=== PATIENT | male | born 1990 | race Caucasian/White ===

== ENCOUNTER 2022-07-21 17:20 | Inpatient (IN) ==
--- NOTE | 2022-07-21 17:48 | ED Triage Note ---
Date of Service July 21, 2022 History of Present Illness This patient was briefly evaluated while in triage. An abbreviated physical exam was performed. This patient is a 32-year-old Male who presents to the ED for evaluation of right inguinal hernia. Seen by [facility] earlier this morning for right groin pain. Ultrasound was performed and diagnosed with hernia. He states this afternoon he developed fevers/chills, increased pain, and lethargic. Physical Exam Constitutional: alert and oriented x3. ill appearing HEENT: normocephalic, atraumatic. normal conjunctiva.PERRLA. EOM's grossly intact. Respiratory: lungs are clear to auscultation without wheezes, rhonchi, or rales bilaterally. equal chest rise. normal respiratory effort, no accessory muscle use. Cardiovascular: normal heart sounds without murmur. tachycardic GI: abdomen is soft, nondistended. RLQ tenderness to palpation. No rebound tenderness or guarding. MSK: moves all 4 extremities spontaneously Psych:appropriate mood and affect. Initial orders for labs and / or imaging were placed and patient was placed in the waiting area until a bed is available. Please see further documentation for the full ED course.
[2022-07-21] MEDS ORDERED: SODIUM CHLORIDE 0.9% 1000ML 1,000 ML IV ONE ×2 (18:55→21:56)
[2022-07-21 19:04] LABS: Appearance Urine Clear (Clear); Bilirubin Urine Negative (Negative); Blood Urine Negative (Negative); Color Urine Yellow; Glucose Urine UA Negative (Negative); Ketones Urine Negative (Negative); Leukocyte Esterase Urine Negative (Negative); Nitrite Urine Negative (Negative); Protein Urine Negative (Negative); Specific Gravity Urine 1.012 (1.000-1.030); Urobilinogen Urine Negative (Negative); pH Urine 8.5 (4.5-7.5)
[2022-07-21] MEDS ORDERED: PROMETHAZINE HCL 12.5 MG in SODIUM CHLORIDE 0.9% 50 ML IV STA (19:08)
[2022-07-21] MEDS ORDERED: MoRPHine SULFATE 4 MG/ML 1 ML CARP\\VIAL IV STA (19:08)
[2022-07-21] MEDS ORDERED: cefTRIAXone SODIUM 2,000 MG/70 ML BAG IV STA (19:08)
[2022-07-21] MEDS ORDERED: PROMETHAZINE 12.5 MG/50.5 ML NSS IV ONE (19:14)
[2022-07-21 19:30] LABS: Influenza A virus by PCR Negative (Neg); Influenza B virus by PCR Negative (Neg); RSV by PCR Negative (Neg); SARS CoV2 RNA(COVID-19) Ceph NEGATIVE (Negative)
[2022-07-21 19:40] LABS: Hematocrit (blood only) 42.3 % (42.0-52.0); Hemoglobin 14.6 g/dl (14.0-18.0); Mean Corpuscular Hemoglobin 29.3 pg (25.0-34.0); Mean Corpuscular Hgb Conc 34.5 g/dL (32.0-36.0); Mean Corpuscular Volume 84.9 fL (80.0-100.0); Mean Platelet Volume 9.8 fL (9.4-12.4); Platelet Count 208 K/uL (130-400); RDW Coefficient of Variation 12.6 % (11.5-14.5); RDW Standard Deviation 38.3 fL (36.4-46.3); Red Blood Count 4.98 M/uL (4.70-6.10); White Blood Count 14.73 K/ul (4.8-10.8)
--- NOTE | 2022-07-21 19:44 | Emergency Department Note ---
Impression & Plan Febrile illness, acute, Right groin pain, Tachycardia ED Provider Note NAME: VINNY LAURENT AGE: 32 SEX: M : 1990 ARRIVES VIA: Walk-In INFORMANT: Patient, ED PROVIDER(S): Calixto Mendoza DO CHIEF COMPLAINT: Thigh pain HPI: The patient is a 32-year-old male who presented to the emergency department for an evaluation of right thigh pain. The patient been having ongoing right groin pain and thigh pain since earlier today. He was seen at a an urgent care and was diagnosed with a hernia. His significant other brought him to the [facility] because of worsening pain as well as fever. The patient is very uncomfortable. He denies having any trauma. He does spend time in the [place] and has had tick bites but not recently. He denies having any rash. He states his lower extremities both feel cold. He denies having any flank pain dysuria or frequency. He denies having any cough. He does note some shortness of breath. ROS: See above HPI for pertinent positives & negatives. A total of 10 systems reviewed and were otherwise negative. PAST MEDICAL HISTORY: See Below PAST SURGICAL HISTORY: See Below FAMILY HISTORY: See Below SOCIAL HISTORY: See Below HOME MEDICATIONS: See Below ALLERGIES: See Below VITALS: See Below PHYSICAL EXAMINATION: GENERAL: The patient is awake and alert. He is very anxious appearing. EYES: The conjunctivae are clear. The pupils are round and reactive. EARS, NOSE, MOUTH AND THROAT: The nose is without any evidence of any deformity. NECK: The neck is nontender and supple. RESPIRATORY: Normal respiratory effort is noted there is no evidence of wheezing rhonchi or rales CARDIOVASCULAR: Tachycardic and regular heart sounds were noted to auscultation. There is no definite murmur. GASTROINTESTINAL: The abdomen was distended. There is no tenderness guarding rigidity elicited. MUSCULOSKELETAL/EXTREMITIES: There is no evidence of gross deformity full range of motion is noted in the hips and shoulders. SKIN: Pulses were symmetric in both feet. Skin is warm and dry. There is tenderness over the medial aspect of the right thigh. NEUROLOGIC: Patient is awake alert and oriented x3 MEDICAL DECISION MAKING: The patient is a 32-year-old male who presented to the emergency department for an evaluation of generalized pain and fever. The patient has no significant past medical history. He was tachycardic. The patient was treated with IV fluids and IV pain medication in the emergency department. He was also treated with IV antibiotics empirically. The patient was found have an elevation in his white blood cell count. He had very significant pain in his right groin. For this reason further radiographic studies were obtained. CT of the groin and right femur did not appear to show any acute process specifically no joint effusion or signs of cellulitis. The patient was feeling somewhat improved. He has no family doctor. Given his presentation I do not feel the patient would be a good candidate for outpatient management. For this reason I will discuss his case with the on-call unassigned hospitalist. Triage Nursing notes reviewed. Prior medical records reviewed Vital Signs: reviewed and remarkable for fever and tachycardia. Differential diagnosis: Viral syndrome, otitis, pharyngitis, pneumonia, influenza, meningitis, urinary tract infection, sepsis, bacteremia, as well as other pathologies. ER treatment provided: See below Diagnostics interpreted by me: ECG: none Cardiac Monitoring: An order was placed for continuous cardiac monitoring. The monitor shows a rate of 113 bpm with sinus tachycardia. Laboratory studies: As stated above and show below. Imaging studies: See below. Radiographic imaging was reviewed by myself Consultation(s): I discussed this case with Dr. Baires who is on-call for the [facility] hospitalist group Past Med/Surg History Social History Smoking Status: Never smoker Preferred Language: Bolivian Feels Safe at Home: Yes Results & Data (ED) Vital Signs Vital Signs - 24 hr 07/21/22 17:45 07/21/22 20:09 07/21/22 20:10 Temperature 38.4 C H Temperature Source Oral Pulse Rate 124 H 117 H 113 H Pulse Rate from SpO2 Sensor 114 H Respiratory Rate 22 28 H Respiratory Effort / Characteristics Non-Labored Respiratory Depth Normal Blood Pressure 158/99 H 116/64 Blood Pressure Mean 118 81 Pulse Oximetry 98 98 Oxygen Delivery Method Room Air Room Air Sepsis Recent Fever Within 48 Hours Yes Sepsis New/Unexplained Change in Mental Status No Sepsis Action Taken by Nursing No Action Required 07/21/22 21:20 Temperature 38.6 C H Temperature Source Oral Pulse Rate Pulse Rate from SpO2 Sensor Respiratory Rate Respiratory Effort / Characteristics Respiratory Depth Blood Pressure Blood Pressure Mean Pulse Oximetry Oxygen Delivery Method Sepsis Recent Fever Within 48 Hours Sepsis New/Unexplained Change in Mental Status Sepsis Action Taken by Jail Medications Current Medication List: was personally reviewed by me Laboratory Data Attestation: I reviewed the patient's lab results. 07/21/22 19:15 07/21/22 18:40 Lab Results 07/21/22 07/21/22 07/21/22 Range/Units 18:40 18:40 18:40 WBC Cancelled RBC Cancelled Hgb Cancelled Hct Cancelled MCV Cancelled MCH Cancelled MCHC Cancelled RDW Std Deviation Cancelled RDW Coeff of Robert Cancelled Plt Count Cancelled MPV Cancelled Immature Gran % (Auto) Cancelled Neut % (Auto) Cancelled Lymph % (Auto) Cancelled [place] % (Auto) Cancelled Eos % (Auto) Cancelled Baso % (Auto) Cancelled Neut # (Auto) Cancelled Lymph # (Auto) Cancelled [place] # (Auto) Cancelled Eos # (Auto) Cancelled Baso # (Auto) Cancelled Immature Gran # (Auto) Cancelled Absolute Nucleated RBC Cancelled Nucleated RBC % (auto) Cancelled Neutrophils % (Manual) Cancelled Band Neutrophils % Cancelled Lymphocytes % (Manual) Cancelled Prolymphocyte % Cancelled Reactive Lymphs % (Man) Cancelled Monocytes % (Manual) Cancelled Eosinophils % (Manual) Cancelled Basophils % (Manual) Cancelled Metamyelocytes % (Man) Cancelled Myelocytes % (Man) Cancelled Promyelocytes % (Man) Cancelled Blast Cells % (Manual) Cancelled Plasma Cell % (Manual) Cancelled Other Cells % Cancelled Nucleated RBC % Cancelled Neutrophils # (Manual) Cancelled Band Neutrophils # Cancelled Total Absolute Neuts Cancelled Lymphocytes # (Manual) Cancelled Prolymphocyte # Cancelled Reactive Lymphs # Cancelled Total Abs Lymphocytes Cancelled Monocytes # (Manual) Cancelled Eosinophils # (Manual) Cancelled Basophils # (Manual) Cancelled Metamyelocytes # (Man) Cancelled Myelocytes # (Manual) Cancelled Promyelocytes # (Man) Cancelled Blast Cells # (Man) Cancelled Plasma Cell # (Manual) Cancelled Other Cells # Cancelled Nucleated RBCs # (Man) Cancelled Hypersegmented Neuts Cancelled Hyposegmented Neuts Cancelled Hypogranular Neuts Cancelled Large Granular Lymphs Cancelled # Lrg Granular Lymphs Cancelled Hairy Cells Cancelled Smudge Cells Cancelled Toxic Granulation Cancelled Toxic Vacuolation Cancelled Dohle Bodies Cancelled Hans Rods Cancelled Platelet Estimate Cancelled Hypogranular Platelets Cancelled Giant Platelets Cancelled Platelet Satelliting Cancelled RBC Morphology Cancelled Polychromasia Cancelled Hypochromasia Cancelled Poikilocytosis Cancelled Basophilic Stippling Cancelled Anisocytosis Cancelled Microcytosis Cancelled Macrocytosis Cancelled Spherocytes Cancelled Pappenheimer Bodies Cancelled Sickle Cells Cancelled Target Cells Cancelled Tear Drop Cells Cancelled Ovalocytes Cancelled Stomatocytes Cancelled [place] Bodies Cancelled Echinocytes Cancelled Acanthocytes (Spur) Cancelled Rouleaux Cancelled RBC Agglutinates Cancelled Schistocytes Cancelled ESR (0-15) mm/hr Sezary Cell Cancelled Sodium Cancelled Potassium Cancelled Chloride Cancelled Carbon Dioxide Cancelled Anion Gap Cancelled BUN Cancelled Creatinine Cancelled Est Cr Clr Drug Dosing Cancelled Est GFR ( Amer) Cancelled Est GFR (Non-Af Amer) Cancelled BUN/Creatinine Ratio Cancelled Glucose Cancelled Lactate 2.0 (0.4-2.0) mmol/L Calcium Cancelled Total Bilirubin Cancelled AST Cancelled ALT Cancelled Alkaline Phosphatase Cancelled Total Creatine Kinase (30-223) U/L C-Reactive Protein (0-0.5) mg/dl Total Protein Cancelled Albumin Cancelled Globulin Cancelled Albumin/Globulin Ratio Cancelled Lipase Cancelled Procalcitonin (0-0.5) ng/ml Urine Color Urine Appearance (Clear) Urine pH (4.5-7.5) Ur Specific Krypt[place] (1.000-1.030) Urine Protein (Negative) Urine Glucose (UA) (Negative) Urine Ketones (Negative) Urine Blood (Negative) Urine Nitrite (Negative) Urine Bilirubin (Negative) Urine Urobilinogen (Negative) Ur Leukocyte Esterase (Negative) Anaplasma Smear Babesia Smear Lyme Disease IgG Ab (Negative) Lyme Disease IgM Ab (Negative) SARS-CoV-2 (PCR) (Negative) Influenza Type A (PCR) (Neg) Influenza Type B (PCR) (Neg) RSV (RT-PCR) (Neg) Blood Parasites ID Cancelled 07/21/22 07/21/22 07/21/22 Range/Units 18:40 18:40 19:15 WBC RBC Hgb Hct MCV MCH MCHC RDW Std Deviation RDW Coeff of Robert Plt Count MPV Immature Gran % (Auto) Neut % (Auto) Lymph % (Auto) [place] % (Auto) Eos % (Auto) Baso % (Auto) Neut # (Auto) Lymph # (Auto) [place] # (Auto) Eos # (Auto) Baso # (Auto) Immature Gran # (Auto) Absolute Nucleated RBC Nucleated RBC % (auto) Neutrophils % (Manual) Band Neutrophils % Lymphocytes % (Manual) Prolymphocyte % Reactive Lymphs % (Man) Monocytes % (Manual) Eosinophils % (Manual) Basophils % (Manual) Metamyelocytes % (Man) Myelocytes % (Man) Promyelocytes % (Man) Blast Cells % (Manual) Plasma Cell % (Manual) Other Cells % Nucleated RBC % Neutrophils # (Manual) Band Neutrophils # Total Absolute Neuts Lymphocytes # (Manual) Prolymphocyte # Reactive Lymphs # Total Abs Lymphocytes Monocytes # (Manual) Eosinophils # (Manual) Basophils # (Manual) Metamyelocytes # (Man) Myelocytes # (Manual) Promyelocytes # (Man) Blast Cells # (Man) Plasma Cell # (Manual) Other Cells # Nucleated RBCs # (Man) Hypersegmented Neuts Hyposegmented Neuts Hypogranular Neuts Large Granular Lymphs # Lrg Granular Lymphs Hairy Cells Smudge Cells Toxic Granulation Toxic Vacuolation Dohle Bodies Hans Rods Platelet Estimate Hypogranular Platelets Giant Platelets Platelet Satelliting RBC Morphology Polychromasia Hypochromasia Poikilocytosis Basophilic Stippling Anisocytosis Microcytosis Macrocytosis Spherocytes Pappenheimer Bodies Sickle Cells Target Cells Tear Drop Cells Ovalocytes Stomatocytes Gonzalez-[place] Bodies Echinocytes Acanthocytes (Spur) Rouleaux RBC Agglutinates Schistocytes ESR 27 H (0-15) mm/hr Sezary Cell Sodium Potassium Chloride Carbon Dioxide Anion Gap BUN Creatinine Est Cr Clr Drug Dosing Est GFR ( Amer) Est GFR (Non-Af Amer) BUN/Creatinine Ratio Glucose Lactate (0.4-2.0) mmol/L Calcium Total Bilirubin AST ALT Alkaline Phosphatase Total Creatine Kinase (30-223) U/L C-Reactive Protein (0-0.5) mg/dl Total Protein Albumin Globulin Albumin/Globulin Ratio Lipase Procalcitonin (0-0.5) ng/ml Urine Color Yellow Urine Appearance Clear (Clear) Urine pH 8.5 H (4.5-7.5) Ur Specific [place]rypt[place] 1.012 (1.000-1.030) Urine Protein Negative (Negative) Urine Glucose (UA) Negative (Negative) Urine Ketones Negative (Negative) Urine Blood Negative (Negative) Urine Nitrite Negative (Negative) Urine Bilirubin Negative (Negative) Urine Urobilinogen Negative (Negative) Ur Leukocyte Esterase Negative (Negative) Anaplasma Smear Babesia Smear Lyme Disease IgG Ab (Negative) Lyme Disease IgM Ab (Negative) SARS-CoV-2 (PCR) NEGATIVE (Negative) Influenza Type A (PCR) Negative (Neg) Influenza Type B (PCR) Negative (Neg) RSV (RT-PCR) Negative (Neg) Blood Parasites ID 07/21/22 07/21/22 07/21/22 Range/Units 19:15 19:15 19:54 WBC 14.73 H RBC 4.98 Hgb 14.6 Hct 42.3 MCV 84.9 MCH 29.3 MCHC 34.5 RDW Std Deviation 38.3 RDW Coeff of Robert 12.6 Plt Count 208 MPV 9.8 Immature Gran % (Auto) 0.4 Neut % (Auto) 91.1 Lymph % (Auto) 3.5 [place] % (Auto) 4.8 Eos % (Auto) 0.1 Baso % (Auto) 0.1 Neut # (Auto) 13.41 H Lymph # (Auto) 0.51 L [place] # (Auto) 0.71 H Eos # (Auto) 0.02 Baso # (Auto) 0.02 Immature Gran # (Auto) 0.06 Absolute Nucleated RBC Nucleated RBC % (auto) Neutrophils % (Manual) Band Neutrophils % Lymphocytes % (Manual) Prolymphocyte % Reactive Lymphs % (Man) Monocytes % (Manual) Eosinophils % (Manual) Basophils % (Manual) Metamyelocytes % (Man) Myelocytes % (Man) Promyelocytes % (Man) Blast Cells % (Manual) Plasma Cell % (Manual) Other Cells % Nucleated RBC % Neutrophils # (Manual) Band Neutrophils # Total Absolute Neuts Lymphocytes # (Manual) Prolymphocyte # Reactive Lymphs # Total Abs Lymphocytes Monocytes # (Manual) Eosinophils # (Manual) Basophils # (Manual) Metamyelocytes # (Man) Myelocytes # (Manual) Promyelocytes # (Man) Blast Cells # (Man) Plasma Cell # (Manual) Other Cells # Nucleated RBCs # (Man) Hypersegmented Neuts Hyposegmented Neuts Hypogranular Neuts Large Granular Lymphs # Lrg Granular Lymphs Hairy Cells Smudge Cells Toxic Granulation Toxic Vacuolation Dohle Bodies Hans Rods Platelet Estimate Hypogranular Platelets Giant Platelets Platelet Satelliting RBC Morphology Polychromasia Hypochromasia Poikilocytosis Basophilic Stippling Anisocytosis Microcytosis Macrocytosis Spherocytes Pappenheimer Bodies Sickle Cells Target Cells Tear Drop Cells Ovalocytes Stomatocytes Gonzalez-[place] Bodies Echinocytes Acanthocytes (Spur) Rouleaux RBC Agglutinates Schistocytes ESR (0-15) mm/hr Sezary Cell Sodium 136 Potassium 3.8 Chloride 104 Carbon Dioxide 24 Anion Gap 8 BUN 9 Creatinine 0.97 Est Cr Clr Drug Dosing 171.5 Est GFR ( Amer) 120.1 Est GFR (Non-Af Amer) 103.6 BUN/Creatinine Ratio 9.3 L Glucose 102 H Lactate (0.4-2.0) mmol/L Calcium 8.6 Total Bilirubin 0.7 AST 21 ALT 27 Alkaline Phosphatase 30 L Total Creatine Kinase 108 (30-223) U/L C-Reactive Protein 3.70 H (0-0.5) mg/dl Total Protein 6.8 Albumin 4.0 Globulin 2.8 Albumin/Globulin Ratio 1.4 Lipase 7 L Procalcitonin 0.12 (0-0.5) ng/ml Urine Color Urine Appearance (Clear) Urine pH (4.5-7.5) Ur Specific [place] (1.000-1.030) Urine Protein (Negative) Urine Glucose (UA) (Negative) Urine Ketones (Negative) Urine Blood (Negative) Urine Nitrite (Negative) Urine Bilirubin (Negative) Urine Urobilinogen (Negative) Ur Leukocyte Esterase (Negative) Anaplasma Smear See Comment Babesia Smear See Comment Lyme Disease IgG Ab Negative (Negative) Lyme Disease IgM Ab Negative (Negative) SARS-CoV-2 (PCR) (Negative) Influenza Type A (PCR) (Neg) Influenza Type B (PCR) (Neg) RSV (RT-PCR) (Neg) Blood Parasites ID Administered Medications Discontinued Medications Acetaminophen (Acetaminophen 500 Mg Tab) 1,000 mg PO NOW STA Stop: 07/21/22 21:20 Last Admin: 07/21/22 21:40 Dose: 1,000 mg Documented By: QGV Sodium Chloride (Nss 1000ml) 1,000 mls @ 999 mls/hr IV .Q1H1M ONE Stop: 07/21/22 19:55 Last Infusion: 07/21/22 20:25 Dose: 0 mls/hr Documented By: Admin: 07/21/22 19:21 Dose: 999 mls/hr Documented By: MED Promethazine HCl 12.5 mg/ (Sodium Chloride) 50.5 mls @ 202 mls/hr IV NOW STA Stop: 07/21/22 19:22 Last Infusion: 07/21/22 20:04 Dose: 0 mls/hr Documented By: Admin: 07/21/22 19:22 Dose: 202 mls/hr Documented By: MED Ceftriaxone Sodium (Rocephin) 2,000 mg in 70 mls @ 140 mls/hr IV NOW STA Stop: 07/21/22 19:37 Last Infusion: 07/21/22 20:42 Dose: 0 mls/hr Documented By: Admin: 07/21/22 20:09 Dose: 140 mls/hr Documented By: QGV Sodium Chloride (Nss 1000ml) 1,000 mls @ 999 mls/hr IV .Q1H1M ONE Stop: 07/21/22 22:56 Last Admin: 07/21/22 22:05 Dose: 999 mls/hr Documented By: QGV Ioversol (Optiray 320 500ml) 125 ml IV ONCE ONE Stop: 07/21/22 21:02 Last Admin: 07/21/22 21:02 Dose: 125 ml Documented By: AFIA Morphine Sulfate (Morphine Sulfate 4 Mg/Ml 1 Ml Carp\Vial) 4 mg IV NOW STA Stop: 07/21/22 19:09 Last Admin: 07/21/22 19:34 Dose: 4 mg Documented By: MED Promethazine HCl (Promethazine 12.5 Mg/50.5 Ml Nss) Confirm Administered Dose 12.5 mg IV .STK-MED ONE Stop: 07/21/22 19:15 Last Admin: 07/21/22 19:22 Dose: Not Given Documented By: MED Imaging Data Attestation: I personally reviewed and interpreted this imaging study as follows: My Impression: CT of the abdomen and pelvis was obtained in the emergency department. My interpretation is no free air or bowel obstruction, final report below. CT of the chest was obtained in the emergency department. My interpretation is no signs of pneumonia or free air, final report below. Radiologist's Impression: Abdomen/Pelvis CT 07/21/22 17:48 Exam(s): CT ABDOMEN + PELVIS With Contrast IV Amt: 125 ml optiray 320 EXAM: CT Abdomen and Pelvis With Intravenous Contrast CLINICAL HISTORY: Reason for exam: right inguinal hernia, fever. TECHNIQUE: Axial computed tomography images of the abdomen and pelvis with intravenous contrast. CTDI is 65.44 mGy and DLP is 3320.73 mGy-cm. Automated exposure control was utilized for the study. A dose lowering technique was utilized adhering to the principles of ALARA. CONTRAST: Patient received 125 ml optiray 320 of IV contrast COMPARISON: No relevant prior studies available. FINDINGS: Lung bases: Unremarkable. No mass. No consolidation. ABDOMEN: Liver: Hepatic steatosis. Gallbladder and bile ducts: Unremarkable. No calcified stones. No ductal dilation. Normal gallbladder. Pancreas: Unremarkable. No mass. No ductal dilation. Spleen: Unremarkable. No splenomegaly. Adrenals: Unremarkable. No mass. Kidneys and ureters: Unremarkable. No hydronephrosis or delayed nephrogram. Stomach and bowel: Unremarkable. No acute diverticulitis. No small bowel obstruction. No free intraperitoneal air. PELVIS: Appendix: No findings to suggest acute appendicitis. Bladder: Unremarkable. No mass. Reproductive: Unremarkable as visualized. ABDOMEN and PELVIS: Intraperitoneal space: Unremarkable. No free air. No significant fluid collection. Bones/joints: No acute fracture. No dislocation. Soft tissues: Unremarkable. Vasculature: Unremarkable. No abdominal aortic aneurysm. Lymph nodes: Unremarkable. No enlarged lymph nodes. IMPRESSION: 1. No hydronephrosis or delayed nephrogram. 2. No acute diverticulitis. No small bowel obstruction. No free intraperitoneal air. 3. Hepatic steatosis. Electronically signed by: Ken Subramanian MD 07/21/22 21:[address] 07/21/22 19:08 Exam(s): CT EXTREMITY RIGHT LOWER With Contrast IV Amt: 125 ml optiray 320 EXAM: CT Right Lower Extremity With Intravenous Contrast CLINICAL HISTORY: Reason for exam: fever and pain. TECHNIQUE: Axial computed tomography images of the right lower extremity with intravenous contrast. CTDI is no fluid collection or abscess. No CT evidence of cellulitis. Automated exposure control was utilized for the study. A dose lowering technique was utilized adhering to the principles of ALARA. 65.44 mGy and DLP is 3320.73 mGy-cm. CONTRAST: Patient received 125 ml optiray 320 of IV contrast COMPARISON: No relevant prior studies available. FINDINGS: Bones/joints: Unremarkable. No dislocation. No fracture the femur. Soft tissues: Unremarkable. No fluid collection or abscess. No CT evidence of cellulitis. IMPRESSION: No fluid collection or abscess. No CT evidence of cellulitis. Electronically signed by: Ken Subramanian MD 07/21/22 22:11 PM Chest CTA 07/21/22 19:47 Exam(s): CTA CHEST IV Amt: 125 ml optiray 320 EXAM: CT Angiography Chest With Intravenous Contrast CLINICAL HISTORY: Reason for exam: PE. TECHNIQUE: Axial computed tomographic angiography images of the chest with intravenous contrast. CTDI is 65.44 mGy and DLP is 3320.73 mGy-cm. Automated exposure control was utilized for the study. A dose lowering technique was utilized adhering to the principles of ALARA. MIP reconstructed images were created and reviewed. COMPARISON: No relevant prior studies available. FINDINGS: Pulmonary arteries: Unremarkable. No pulmonary embolism. Aorta: No acute findings. No thoracic aortic aneurysm. Lungs: Unremarkable. No mass. No consolidation. Pleural space: Unremarkable. No significant effusion. No pneumothorax. Heart: Unremarkable. No cardiomegaly. No significant pericardial effusion. No evidence of RV dysfunction. Bones/joints: No acute fracture. No dislocation. Soft tissues: Unremarkable. Lymph nodes: Unremarkable. No enlarged lymph nodes. IMPRESSION: Normal chest CTA. No pulmonary embolism. Electronically signed by: Ken Subramanian MD 07/21/22 21:44 PM Discharge Plan Visit Data Chief Complaint: Groin Pain Stated Complaint: HERNIA, FEVER, TACHYCARDIA, HEADACHE ED Provider: Calixto Mendoza Discharge Problem: Febrile illness, acute, Right groin pain, Tachycardia Patient Disposition: Being Evaluated by Hospitalist Forms Stand Alone Forms: [facility] Referrals Referrals: PCP,NO [Primary Care Provider] -
[2022-07-21 20:01] LABS: Basophils # (auto) 0.02 K/uL (0-0.2); Basophils % (auto) 0.1 %; Eosinophils # (auto) 0.02 K/uL (0-0.50); Eosinophils % (auto) 0.1 %; Immature Granulocytes # (auto) 0.06 K/uL (0.01-0.20); Immature Granulocytes % (auto) 0.4 %; Lymphocytes # (auto) 0.51 K/uL (1.2-3.4); Lymphocytes % (auto) 3.5 %; Monocytes # (auto) 0.71 K/uL (0.11-0.59); Monocytes % (auto) 4.8 %; Neutrophils # (auto) 13.41 K/uL (1.40-6.50); Neutrophils % (auto) 91.1 %
[2022-07-21 20:30] LABS: Procalcitonin 0.12 ng/ml (0-0.5)
[2022-07-21 20:36] LABS: Lyme Ab IgG w/WB Rflx Negative (Negative); Lyme Ab IgM w/WB Rflx Negative (Negative)
[2022-07-21 20:41] LABS: Albumin Globulin Ratio 1.4 (0.9-2); BUN Creatinine Ratio 9.3 (10-20); Bilirubin,Total 0.7 mg/dl (0.2-1.0); C Reactive Protein 3.7 mg/dl (0-0.5); Calcium 8.6 mg/dl (8.6-10.3); Creatinine Clr Calc Pharmacy 171.5 ml/min; Est GFR (African American) 120.1 ml/min; Est GFR (Non-African American) 103.6 ml/min; Globulin 2.8 gm/dl (2.5-4.0); Potassium 3.8 mmol/L (3.5-5.1); Total Protein 6.8 gm/dl (6.0-8.3)
[2022-07-21] MEDS ORDERED: OPTIRAY 320 500ml IV ONE (21:01)
[2022-07-21] MEDS ORDERED: ACETAMINOPHEN 500 MG TAB PO STA (21:19)
--- NOTE | 2022-07-21 21:44 | CT Scan Report ---
Exam(s): CTA CHEST IV Amt: 125 ml optiray 320 EXAM: CT Angiography Chest With Intravenous Contrast CLINICAL HISTORY: Reason for exam: PE. TECHNIQUE: Axial computed tomographic angiography images of the chest with intravenous contrast. CTDI is 65.44 mGy and DLP is 3320.73 mGy-cm. Automated exposure control was utilized for the study. A dose lowering technique was utilized adhering to the principles of ALARA. MIP reconstructed images were created and reviewed. COMPARISON: No relevant prior studies available. FINDINGS: Pulmonary arteries: Unremarkable. No pulmonary embolism. Aorta: No acute findings. No thoracic aortic aneurysm. Lungs: Unremarkable. No mass. No consolidation. Pleural space: Unremarkable. No significant effusion. No pneumothorax. Heart: Unremarkable. No cardiomegaly. No significant pericardial effusion. No evidence of RV dysfunction. Bones/joints: No acute fracture. No dislocation. Soft tissues: Unremarkable. Lymph nodes: Unremarkable. No enlarged lymph nodes. IMPRESSION: Normal chest CTA. No pulmonary embolism. Electronically signed by: Ken Subramanian MD 07/21/22 21:44 PM
--- NOTE | 2022-07-21 21:56 | CT Scan Report ---
Exam(s): CT ABDOMEN + PELVIS With Contrast IV Amt: 125 ml optiray 320 EXAM: CT Abdomen and Pelvis With Intravenous Contrast CLINICAL HISTORY: Reason for exam: right inguinal hernia, fever. TECHNIQUE: Axial computed tomography images of the abdomen and pelvis with intravenous contrast. CTDI is 65.44 mGy and DLP is 3320.73 mGy-cm. Automated exposure control was utilized for the study. A dose lowering technique was utilized adhering to the principles of ALARA. CONTRAST: Patient received 125 ml optiray 320 of IV contrast COMPARISON: No relevant prior studies available. FINDINGS: Lung bases: Unremarkable. No mass. No consolidation. ABDOMEN: Liver: Hepatic steatosis. Gallbladder and bile ducts: Unremarkable. No calcified stones. No ductal dilation. Normal gallbladder. Pancreas: Unremarkable. No mass. No ductal dilation. Spleen: Unremarkable. No splenomegaly. Adrenals: Unremarkable. No mass. Kidneys and ureters: Unremarkable. No hydronephrosis or delayed nephrogram. Stomach and bowel: Unremarkable. No acute diverticulitis. No small bowel obstruction. No free intraperitoneal air. PELVIS: Appendix: No findings to suggest acute appendicitis. Bladder: Unremarkable. No mass. Reproductive: Unremarkable as visualized. ABDOMEN and PELVIS: Intraperitoneal space: Unremarkable. No free air. No significant fluid collection. Bones/joints: No acute fracture. No dislocation. Soft tissues: Unremarkable. Vasculature: Unremarkable. No abdominal aortic aneurysm. Lymph nodes: Unremarkable. No enlarged lymph nodes. IMPRESSION: 1. No hydronephrosis or delayed nephrogram. 2. No acute diverticulitis. No small bowel obstruction. No free intraperitoneal air. 3. Hepatic steatosis. Electronically signed by: Ken Subramanian MD 07/21/22 21:55 PM
--- NOTE | 2022-07-21 22:12 | CT Scan Report ---
Exam(s): CT EXTREMITY RIGHT LOWER With Contrast IV Amt: 125 ml optiray 320 EXAM: CT Right Lower Extremity With Intravenous Contrast CLINICAL HISTORY: Reason for exam: fever and pain. TECHNIQUE: Axial computed tomography images of the right lower extremity with intravenous contrast. CTDI is no fluid collection or abscess. No CT evidence of cellulitis. Automated exposure control was utilized for the study. A dose lowering technique was utilized adhering to the principles of ALARA. 65.44 mGy and DLP is 3320.73 mGy-cm. CONTRAST: Patient received 125 ml optiray 320 of IV contrast COMPARISON: No relevant prior studies available. FINDINGS: Bones/joints: Unremarkable. No dislocation. No fracture the femur. Soft tissues: Unremarkable. No fluid collection or abscess. No CT evidence of cellulitis. IMPRESSION: No fluid collection or abscess. No CT evidence of cellulitis. Electronically signed by: Ken Subramanian MD 07/21/22 22:11 PM
--- NOTE | 2022-07-22 02:03 | History & Physical Report ---
Date of Service July 22, 2022 Assessment & Plan (1) SIRS (systemic inflammatory response syndrome): Plan: Patient is a 32-year-old male with no significant past medical history who presents to the hospital for evaluation for general unwellness and groin pain. Patient went to urgent care today with diagnosis of hernia, however, hernia not mentioned on CT of the abdomen/pelvis. Patient having SIRS criteria without source identified at this time. Patient to be admitted for empiric antibiotic treatment and further work-up. -Admit to [facility] -Patient admitted initially with tachycardia, tachypnea, elevated white count, and fever -Suspect SIRS due to infectious process at this time given elevated ESR and CRP, but no identified organism at this time -COVID and flu negative -Lyme, anaplasmosis negative -Blood cultures taken prior to Rocephin administration -Continue Rocephin 2 g daily for empiric antibiotic treatment while work-up pending -Urinalysis negative -PSA negative making prostatitis unlikely -Chest x-ray negative reducing likelihood of pneumonia -CT's negative for abscess or infectious process at this time -Babesia, Ehrlichia, and Rickettsia pending -Serial CRP, ESR, CBC to evaluate effectiveness of antibiotic therapy -Tylenol as needed for fever/pain -If patient continues to decline, consider infectious disease consult (2) Right groin pain: Plan: - Allegedly diagnosed with hernia on ultrasound today at urgent care -CT of abdomen pelvis not demonstrating hernia per review by radiology -Lactate negative reducing likelihood of strangulated bowel (3) Asthma: Plan: - Continue Breo Ellipta Plan Diet: Regular DVT prophylaxis: Lovenox Disposition: Admit to [facility] for infectious work-up and empiric antibiotic treatment CODE STATUS: Full code History of Present Illness Chief Complaint: General unwellness Primary Care Provider: NO PCP Patient is a 32-year-old male with no significant past medical history who presents to the hospital for evaluation for general unwellness and groin pain. Patient reports that he was of normal health up until yesterday and this morning he had woken up with groin pain on the right side. Initially he went to urgent care for evaluation and they were able to do an ultrasound which had shown a right hernia per the patient's history. They were sent home with there after. Unfortunately his groin pain continued to worsen and he also developed a fever over the course of the day. For this reason he came to the emergency department for further evaluation. In the ED he is tachycardic, febrile, and tachypneic. He was also feeling short of breath prior to arrival. Denies any polyuria, hematuria, but does report occasional dysuria today. He has been having the same amount of urine output as he typically does. He had a bowel movement this morning that was unremarkable. Denies nausea or vomiting. No weakness. No other complaints at this time. ED course: Patient was evaluated by one of our providers. Lab work was significant for an elevated white count at 14.7, ESR of 27, C-reactive protein of 3.7, negative urinalysis, negative Lyme, negative COVID, negative flu, and normal PSA. Abdomen pelvis CT, chest x-ray, femur CT, and CTA all negative for acute pathologies. Due to positive SIRS criteria, patient was given two 1 L boluses of normal saline, 2 g of Rocephin, and Tylenol. Due to positive SIRS criteria given fever, tachycardia, tachypnea, and leukocytosis without source, hospitalist service was consulted for further evaluation and treatment. Allergies Allergy/AdvReac Type Severity Reaction Status Date / Time Penicillins Allergy Severe Anaphylaxis Verified 07/21/22 23:06 Home Medications Medication Instructions Recorded Confirmed Type azelastine-fluticasone 137 mcg-50 1 spray intranasal BID 07/21/22 07/21/22 History mcg/spray nasal spray fluticasone furoate 200 1 ea inhalation DAILY 07/21/22 07/21/22 History mcg-vilanterol 25 mcg/dose inhalation powder (Breo Ellipta) Past Med/Surg History Social History Smoking Status: Never smoker Do You Dip or Chew Tobacco: Yes (quit 10 years ago); Hx Alcohol Use: Yes Hx Substance Use: No Preferred Language: Indian Communication Ability: Effective 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 Beliefs That Will Affect Care: None Current Living Situation: Family Current Living Situation Comment: Lives in house with , 2 kids, 2 dogs Other Information That Helps Us Care for You: No Feels Safe at Home: Yes Safety Concerns: Feels Safe At This Time Assistive Devices: None Review of Systems Review of Systems: All systems reviewed & are unremarkable except as noted in HPI & below Physical Exam Constitutional: WD/WN, vitals as above + ill appearing and + obese Eyes: + scleral abnormality and + anicteric sclerae Neck: trachea midline, no thyromegaly Respiratory: normal respiratory effort, lungs clear to auscultation Cardiovascular: RRR, no murmur, no edema Gastrointestinal (Abdomen): Inspection/Auscultation: abdomen normal to inspection and normal bowel sounds; abdomen not distended Pe rcussion/Palpation: abdomen soft Musculoskeletal: Head/Neck/Chest: normocephalic and head atraumatic Skin: no rashes, warm and dry Neurologic: moves all extremities Psychiatric: A+Ox3, euthymic affect Genitourinary: no testicular masses, no penis abnormality Lymphatic: no cervical lymphadenopathy Results & Data Results & Data Vital Signs (Past 12 Hours) Vital Signs Temp Pulse Resp BP Pulse Ox O2 Del Method 07/22/22 01:52 37.2 C 99 H 18 128/89 100 Room Air 07/21/22 23:01 110 H 28 H 114/63 95 07/21/22 23:01 38 C H 07/21/22 21:20 38.6 C H 07/21/22 20:10 113 H 28 H 116/64 98 Room Air 07/21/22 20:09 117 H 07/21/22 17:45 38.4 C H 124 H 22 158/99 H 98 Room Air Code Status & VTE Plan VTE Prophylaxis Plan VTE Prophylaxis will be ordered: Yes Supervising Physician Co-Signing Physician Notes Patient seen and examined, chart reviewed, case discussed with Dr. Pereira and I agree with the assessment and plan as above. In brief, patient is a 32yo male with no significant past medical history presenting with severe right groin pain as well as fever. Patient was seen at Urgent Care prior to his arrival to [facility] and was told that he has a hernia. Sepsis on arrival with Tm=38.4, FR=910, WBC=14.7, elevated ESR and CRP CT of the Abdomen/Pelvis, femur and CTA unremarkable On exam: Patient is significant discomfort with pain in the right groin. No appreciable mass or hernia. No cellulitis or edema Remainder of exam unremarkable Labs and images reviewed Covid/Flu/Lyme/Anaplasmosis NEGATIVE Blood cultures pending UA and PSA negative Assessment/Plan Right groin pain with sepsis - etiology unclear. No injury or evidence of infection. No abscess. ?Prostatitis, early abscess, myositis? No evidenc of hernia on exam or imaging. Workup largely unremarkable thus far -Continue to monitor -Continue Ceftriaxone -Remainder as above
[2022-07-22] MEDS: ACETAMINOPHEN 325 MG TAB PO PRN ×3 (02:54→20:01)
[2022-07-22] MEDS: ENOXAPARIN INJ 40 MG/0.4 ML SYR SQ SCH ×2 (06:08→18:03)
--- NOTE | 2022-07-22 07:08 | XRay Report ---
XR chest 1V portable CLINICAL HISTORY: Shortness of breath. COMPARISON STUDY: No previous studies for comparison. FINDINGS: Lung volumes are normal. Lungs are clear. There is no pneumothorax or pleural effusion. Car diac size is normal. Mediastinal contours are normal. There is no evidence for pulmonary edema. IMPRESSION: No acute cardiopulmonary findings. ACT 112: Negative or not required by law. Electronically signed by: Fady Bryan M.D. 07/22/2022 7:07 AM
[2022-07-22 08:04] LABS: Basophils # (auto) 0.02 K/uL (0-0.2); Basophils % (auto) 0.3 %; Eosinophils # (auto) 0.01 K/uL (0-0.50); Eosinophils % (auto) 0.1 %; Hematocrit (blood only) 40.4 % (42.0-52.0); Hemoglobin 13.6 g/dl (14.0-18.0); Immature Granulocytes # (auto) 0.05 K/uL (0.01-0.20); Immature Granulocytes % (auto) 0.7 %; Lymphocytes # (auto) 0.76 K/uL (1.2-3.4); Lymphocytes % (auto) 10.4 %; Mean Corpuscular Hemoglobin 28.9 pg (25.0-34.0); Mean Corpuscular Hgb Conc 33.7 g/dL (32.0-36.0); Mean Platelet Volume 9.8 fL (9.4-12.4); Monocytes # (auto) 0.45 K/uL (0.11-0.59); Monocytes % (auto) 6.2 %; Neutrophils # (auto) 5.99 K/uL (1.40-6.50); Neutrophils % (auto) 82.3 %; Platelet Count 177 K/uL (130-400); RDW Coefficient of Variation 12.6 % (11.5-14.5); RDW Standard Deviation 39.2 fL (36.4-46.3); White Blood Count 7.28 K/ul (4.8-10.8)
[2022-07-22 08:28] LABS: Albumin Globulin Ratio 1.3 (0.9-2); BUN Creatinine Ratio 10.8 (10-20); Bilirubin,Total 0.8 mg/dl (0.2-1.0); C Reactive Protein 10.67 mg/dl (0-0.5); Calcium 8.8 mg/dl (8.6-10.3); Creatinine Clr Calc Pharmacy 187.4 ml/min; Est GFR (African American) 126.3 ml/min; Globulin 3.1 gm/dl (2.5-4.0); Potassium 3.5 mmol/L (3.5-5.1); Total Protein 7.1 gm/dl (6.0-8.3)
[2022-07-22] MEDS: FLUTICASONE/VILANTEROL 200/25MCG 14 PUFFS/INHALER INH SCH (12:33)
[2022-07-22 14:41] LABS: Hematocrit (blood only) 40.4 % (42.0-52.0); Hemoglobin 13.7 g/dl (14.0-18.0); Mean Corpuscular Hgb Conc 33.9 g/dL (32.0-36.0); Mean Corpuscular Volume 85.4 fL (80.0-100.0); Mean Platelet Volume 9.4 fL (9.4-12.4); Platelet Count 171 K/uL (130-400); RDW Coefficient of Variation 12.9 % (11.5-14.5); RDW Standard Deviation 39.8 fL (36.4-46.3); Red Blood Count 4.73 M/uL (4.70-6.10); White Blood Count 5.41 K/ul (4.8-10.8)
--- NOTE | 2022-07-22 15:56 | Communication Note ---
Date of Service: July 22, 2022 ATTESTATION I also saw the patient and confirmed garcia portions of the history and exam. I agree with the impression and plan in the resident documentation. 32-year-old male admitted earlier this morning after a 1 day history of posterior neck/shoulder and right groin pain with associated fever and general malaise. During our early afternoon exam today, the patient is sleeping but awakens to voice. His is at bedside. He reports feeling better today when compared to yesterday, but not at his baseline. EXAM 131/84, 79, 18, 36.5, 98% on room air Mucous membranes pink and moist. He is alert and oriented. No acute distress. Neck is supple without lymphadenopathy Heart is regular without murmur rub or gallop Lungs are clear with nonlabored respirations The abdomen is soft and nontender The right inguinal area is palpated; no appreciable lymphadenopathy is noted. Very minimal tenderness. DATA Labs WBC 5.41, hemoglobin 13.7, platelet count 171 Electrolytes are unremarkable. BUN 10, creatinine 0.93 C-reactive protein 10.67. Anaplasma and Babesia smears are negative. Lyme IgG/IgM are negative Coronavirus and influenza a/B negative. RSV negative Rickettsia, Q fever, typhus fever pending Imaging Chest CT dated 07/21/2022 shows no acute disease CT scan abdomen pelvis dated 07/21/2022 shows no acute process; specifically, inguinal lymph nodes are unremarkable. CT of the right femur dated 07/21/2022 shows no fluid collection or abscess. No evidence of cellulitis. Micro Blood cultures drawn 07/21/2022 are pending IMPRESSION & PLAN Fever, suspect viral etiology Continue Rocephin until blood cultures returned Repeat CBC, and inflammatory markers Await additional admission laboratory studies Unsure cause of the patient's right inguinal pain; exam today is unremarkable, CT of this area is also nonrevealing If continues to improve and no significant change in laboratory studies, discussed possible discharge tomorrow Additional per resident documentation
[2022-07-22] MEDS: cefTRIAXone SODIUM 2,000 MG in DEXTROSE 5% 50 ML IV SCH (20:01)
--- NOTE | 2022-07-23 00:30 | Billing Data ---
Date of Service July 22, 2022 Coding Level of Care Code 92983 INT INP/OBS CARE
[2022-07-23] MEDS: ENOXAPARIN INJ 40 MG/0.4 ML SYR SQ SCH ×2 (05:44→17:35)
[2022-07-23] MEDS: ACETAMINOPHEN 325 MG TAB PO PRN ×2 (05:47→17:36)
--- NOTE | 2022-07-23 07:04 | Hospitalist Progress Note ---
Date of Service July 23, 2022 Assessment & Plan (1) SIRS (systemic inflammatory response syndrome): (2) Right groin pain: (3) Asthma: (4) Pain in right alvarez: Plan Patient is a 32-year-old male with no significant past medical history who presents to the hospital for evaluation for general unwellness and groin pain. Patient went to urgent care today with diagnosis of hernia, however, hernia not mentioned on CT of the abdomen/pelvis. Patient having SIRS criteria without source identified at this time. Patient was admitted for empiric antibiotic treatment and further work-up. SIRS-resolved -Patient admitted initially with tachycardia, tachypnea, elevated white count, and fever. -Initially had a leukocytosis of 14 on admission, resolved. -Patient is now afebrile with normal heart rate and no leukocytosis. -COVID, flu, Lyme, and anaplasmosis negative. -Started prophylactic treatment with Rocephin on 07/22. Blood cultures are taken prior to Rocephin administration which are negative x24 hours. -Urinalysis negative -PSA negative making prostatitis unlikely -Chest x-ray negative reducing likelihood of pneumonia -CT's negative for abscess or infectious process at this time -Babesia, Ehrlichia, and Rickettsia pending -Serial CRP, ESR, CBC to evaluate effectiveness of antibiotic therapy -ESR and CRP were elevated on admission and continue to increase despite clinically getting better and on Rocephin. -Pro-William negative, BioFire negative, peripheral smear negative. -Tylenol as needed for fever/pain -Unsure of exact etiology and given the fact patient is still having continuing elevated ESR and CRP in the setting of having new painful area we will continue to work-up exact etiology. RPR, HIV, chlamydia and gonorrhea pending. If negative may consider outpatient autoimmune work-up, will order THO for a.m. labs. Pain in right alvarez -Erythematous patch appeared today on the right alvarez without any injury to the area. -We will continue to monitor and work-up further etiology of patient's symptoms. Right groin painresolved - Allegedly diagnosed with hernia on ultrasound today at urgent care -CT of abdomen pelvis not demonstrating hernia -Lactate negative reducing likelihood of strangulated bowel -Pain subsided. Asthma, chronic - Continue Breo Ellipta Diet: Regular DVT prophylaxis: Lovenox Disposition: Admit to [facility] for infectious work-up and empiric antibiotic treatment CODE STATUS: Full code Admission and Anticipated Discharge Date Admission Date: July 22, 2022 Supervising Physician Co-Signing Physician Notes Attending attestation Pt seen and examined in concert with Dr. Mireles. In agreement with the documented findings as noted in the resident documentation with any exceptions or additions as noted here. Ongoing diaphoresis, which patient reports is often his baseline, without other acute symptoms or complaints at present. On examination, S1/S2 nl RRR no MCG. CTAB. Abd NT/ND BS+ve SIRS without apparent source - expanded infectious w/u as noted in the setting of uptrending inflammatory markers with improvement in WBC. Consider w/u for rheumatologic causes based on testing and consider outpatient w/u Else see resident documentation as noted. Subjective Patient was seen bedside this morning. Patient states that his headache is still present but getting better. States that his right groin pain has also subsided and is no longer tender. He does state that he has a new "bruise" on his right anterior alvarez. States that it is painful and tender to the touch. He denies injuring this area in any way. He states that the pain feels similar to what his right groin felt like previously Review of Systems Review of Systems: All systems reviewed & are unremarkable except as noted in Subjective Physical Exam Constitutional: WD/WN, vitals as above Eyes: PERRL, conjunctivae normal, anicteric sclerae + anicteric sclerae; no conjunctival abnormality Neck: trachea midline, no thyromegaly Respiratory: normal respiratory effort, lungs clear to auscultation Cardiovascular: RRR, no murmur, no edema Gastrointestinal (Abdomen): normal bowel sounds, soft, nontender, no hepatosplenomegaly Musculoskeletal: Head/Neck/Chest: normocephalic and head atraumatic Skin: no rashes Approximately 5-7 cm erythematous patch on the right anterior alvarez Neurologic: patellar DTR's 2+ bilat, sensation intact Psychiatric: A+Ox3, euthymic affect Genitourinary: no testicular masses, no penis abnormality Lymphatic: no cervical lymphadenopathy and no inguinal lymphadenopathy Results & Data Results & Data Vital Signs (Past 12 Hours) Vital Signs Temp Pulse Resp BP Pulse Ox O2 Del Method 07/22/22 21:01 37.1 C 82 20 129/72 99 Room Air Resident Activity Tracking Resident Involvement: Resident Care Provided Care Provided: Adult Hospital Medicine
[2022-07-23 07:48] LABS: Hematocrit (blood only) 41.5 % (42.0-52.0); Mean Corpuscular Hemoglobin 28.9 pg (25.0-34.0); Mean Corpuscular Hgb Conc 33.7 g/dL (32.0-36.0); Mean Corpuscular Volume 85.7 fL (80.0-100.0); Mean Platelet Volume 9.6 fL (9.4-12.4); Platelet Count 169 K/uL (130-400); RDW Coefficient of Variation 12.4 % (11.5-14.5); RDW Standard Deviation 38.5 fL (36.4-46.3); Red Blood Count 4.84 M/uL (4.70-6.10); White Blood Count 5.24 K/ul (4.8-10.8)
[2022-07-23 07:59] LABS: Albumin Globulin Ratio 1.2 (0.9-2); Albumin Level 3.8 gm/dl (3.4-5.0); BUN Creatinine Ratio 11.8 (10-20); Bilirubin,Total 0.5 mg/dl (0.2-1.0); C Reactive Protein 10.25 mg/dl (0-0.5); Calcium 8.8 mg/dl (8.6-10.3); Est GFR (African American) 134.6 ml/min; Est GFR (Non-African American) 116.1 ml/min; Globulin 3.3 gm/dl (2.5-4.0); Potassium 3.7 mmol/L (3.5-5.1); Total Protein 7.1 gm/dl (6.0-8.3)
[2022-07-23] MEDS: FLUTICASONE/VILANTEROL 200/25MCG 14 PUFFS/INHALER INH SCH (09:25)
[2022-07-23 12:46] LABS: Procalcitonin 0.16 ng/ml (0-0.5)
[2022-07-23 13:20] LABS: Adenovirus PCR Not Detected (NotDetected); Bordetella parapertussis PCR Not Detected (NotDetected); Bordetella pertussis PCR Not Detected (NotDetected); Chlamydia pneumoniae PCR Not Detected (NotDetected); Coronavirus 229E PCR Not Detected (NotDetected); Coronavirus CoV-2 (COVID19)PCR Not Detected (NotDetected); Coronavirus HKU1 PCR Not Detected (NotDetected); Coronavirus NL63 PCR Not Detected (NotDetected); Coronavirus OC43PCR Not Detected (NotDetected); Human Metapneumovirus PCR Not Detected (NotDetected); Influenza A PCR Not Detected (NotDetected); Influenza B PCR Not Detected (NotDetected); Mycoplasma pneumoniae PCR Not Detected (NotDetected); Parainfluenza Virus 1 PCR Not Detected (NotDetected); Parainfluenza Virus 2 PCR Not Detected (NotDetected); Parainfluenza Virus 3 PCR Not Detected (NotDetected); Parainfluenza Virus 4 PCR Not Detected (NotDetected); Respiratory Syncytial VirusPCR Not Detected (NotDetected); Rhinovirus/Enterovirus PCR Not Detected (NotDetected)
[2022-07-23] MEDS: cefTRIAXone SODIUM 2,000 MG in DEXTROSE 5% 50 ML IV SCH (19:42)
[2022-07-23] MEDS: FLUTICASONE PROPIONATE NA SPR 16 GM BTL SCH (19:45)
[2022-07-24 00:45] LABS: Rapid Plasma Reagin Nonreactive (Nonreactive)
[2022-07-24] MEDS: ENOXAPARIN INJ 40 MG/0.4 ML SYR SQ SCH (06:29)
--- NOTE | 2022-07-24 07:30 | Discharge Summary ---
Date of Service July 24, 2022 Admission HPI Per Admitting Provider Patient is a 32-year-old male with no significant past medical history who presents to the hospital for evaluation for general unwellness and groin pain. Patient reports that he was of normal health up until yesterday and this morning he had woken up with groin pain on the right side. Initially he went to urgent care for evaluation and they were able to do an ultrasound which had shown a right hernia per the patient's history. They were sent home with there after. Unfortunately his groin pain continued to worsen and he also developed a fever over the course of the day. For this reason he came to the emergency department for further evaluation. In the ED he is tachycardic, febrile, and tachypneic. He was also feeling short of breath prior to arrival. Denies any polyuria, hematuria, but does report occasional dysuria today. He has been having the same amount of urine output as he typically does. He had a bowel movement this morning that was unremarkable. Denies nausea or vomiting. No weakness. No other complaints at this time. ED course: Patient was evaluated by one of our providers. Lab work was significant for an elevated white count at 14.7, ESR of 27, C-reactive protein of 3.7, negative urinalysis, negative Lyme, negative COVID, negative flu, and normal PSA. Abdomen pelvis CT, chest x-ray, femur CT, and CTA all negative for acute pathologies. Due to positive SIRS criteria, patient was given two 1 L boluses of normal saline, 2 g of Rocephin, and Tylenol. Due to positive SIRS criteria given fever, tachycardia, tachypnea, and leukocytosis without source, hospitalist service was consulted for further evaluation and treatment. Admission Exam Per Admitting Provider Constitutional: WD/WN, vitals as above + ill appearing and + obese Eyes: + scleral abnormality and + anicteric sclerae Neck: trachea midline, no thyromegaly Respiratory: normal respiratory effort, lungs clear to auscultation Cardiovascular: RRR, no murmur, no edema Gastrointestinal (Abdomen): Inspection/Auscultation: abdomen normal to inspection and normal bowel sounds; abdomen not distended Percussion/Palpation: abdomen soft Musculoskeletal: Head/Neck/Chest: normocephalic and head atraumatic Skin: no rashes, warm and dry Neurologic: moves all extremities Psychiatric: A+Ox3, euthymic affect Genitourinary: no testicular masses, no penis abnormality Lymphatic: no cervical lymphadenopathy Principal Diagnosis SIRS without established etiology Discharge Exam Constitutional WD/WN, vitals as above Eyes PERRL, conjunctivae normal, anicteric sclerae + anicteric sclerae; no conjunctival abnormality Neck trachea midline, no thyromegaly Respiratory normal respiratory effort, lungs clear to auscultation Cardiovascular RRR, no murmur, no edema Gastrointestinal (Abdomen) normal bowel sounds, soft, nontender, no hepatosplenomegaly Musculoskeletal Head/Neck/Chest: normocephalic and head atraumatic Skin no rashes Neurologic patellar DTR's 2+ bilat, sensation intact moves all extremities Psychiatric A+Ox3, euthymic affect Genitourinary no testicular masses, no penis abnormality Lymphatic no cervical lymphadenopathy and no inguinal lymphadenopathy Discharge Data Allergies Allergy/AdvReac Type Severity Reaction Status Date / Time Penicillins Allergy Severe Anaphylaxis Verified 07/21/22 23:06 Consultations 07/21/22 23:04 ED Decision to Admit Stat Ordered Studies Abdomen/Pelvis CT 07/21/22 17:48 Exam(s): CT ABDOMEN + PELVIS With Contrast IV Amt: 125 ml optiray 320 EXAM: CT Abdomen and Pelvis With Intravenous Contrast CLINICAL HISTORY: Reason for exam: right inguinal hernia, fever. TECHNIQUE: Axial computed tomography images of the abdomen and pelvis with intravenous contrast. CTDI is 65.44 mGy and DLP is 3320.73 mGy-cm. Automated exposure control was utilized for the study. A dose lowering technique was utilized adhering to the principles of ALARA. CONTRAST: Patient received 125 ml optiray 320 of IV contrast COMPARISON: No relevant prior studies available. FINDINGS: Lung bases: Unremarkable. No mass. No consolidation. ABDOMEN: Liver: Hepatic steatosis. Gallbladder and bile ducts: Unremarkable. No calcified stones. No ductal dilation. Normal gallbladder. Pancreas: Unremarkable. No mass. No ductal dilation. Spleen: Unremarkable. No splenomegaly. Adrenals: Unremarkable. No mass. Kidneys and ureters: Unremarkable. No hydronephrosis or delayed nephrogram. Stomach and bowel: Unremarkable. No acute diverticulitis. No small bowel obstruction. No free intraperitoneal air. PELVIS: Appendix: No findings to suggest acute appendicitis. Bladder: Unremarkable. No mass. Reproductive: Unremarkable as visualized. ABDOMEN and PELVIS: Intraperitoneal space: Unremarkable. No free air. No significant fluid collection. Bones/joints: No acute fracture. No dislocation. Soft tissues: Unremarkable. Vasculature: Unremarkable. No abdominal aortic aneurysm. Lymph nodes: Unremarkable. No enlarged lymph nodes. IMPRESSION: 1. No hydronephrosis or delayed nephrogram. 2. No acute diverticulitis. No small bowel obstruction. No free intraperitoneal air. 3. Hepatic steatosis. Electronically signed by: Ken Subramanian MD 07/21/22 21:55 PM Chest X-Ray 07/21/22 18:55 XR chest 1V portable CLINICAL HISTORY: Shortness of breath. COMPARISON STUDY: No previous studies for comparison. FINDINGS: Lung volumes are normal. Lungs are clear. There is no pneumothorax or pleural effusion. Cardiac size is normal. Mediastinal contours are normal. There is no evidence for pulmonary edema. IMPRESSION: No acute cardiopulmonary findings. ACT 112: Negative or not required by law. Electronically signed by: Fady Bryan M.D. 07/22/2022 7:[address] 07/21/22 19:08 Exam(s): CT EXTREMITY RIGHT LOWER With Contrast IV Amt: 125 ml optiray 320 EXAM: CT Right Lower Extremity With Intravenous Contrast CLINICAL HISTORY: Reason for exam: fever and pain. TECHNIQUE: Axial computed tomography images of the right lower extremity with intravenous contrast. CTDI is no fluid collection or abscess. No CT evidence of cellulitis. Automated exposure control was utilized for the study. A dose lowering technique was utilized adhering to the principles of ALARA. 65.44 mGy and DLP is 3320.73 mGy-cm. CONTRAST: Patient received 125 ml optiray 320 of IV contrast COMPARISON: No relevant prior studies available. FINDINGS: Bones/joints: Unremarkable. No dislocation. No fracture the femur. Soft tissues: Unremarkable. No fluid collection or abscess. No CT evidence of cellulitis. IMPRESSION: No fluid collection or abscess. No CT evidence of cellulitis. Electronically signed by: Ken Subramanian MD 07/21/22 22:11 PM Chest CTA 07/21/22 19:47 Exam(s): CTA CHEST IV Amt: 125 ml optiray 320 EXAM: CT Angiography Chest With Intravenous Contrast CLINICAL HISTORY: Reason for exam: PE. TECHNIQUE: Axial computed tomographic angiography images of the chest with intravenous contrast. CTDI is 65.44 mGy and DLP is 3320.73 mGy-cm. Automated exposure control was utilized for the study. A dose lowering technique was utilized adhering to the principles of ALARA. MIP reconstructed images were created and reviewed. COMPARISON: No relevant prior studies available. FINDINGS: Pulmonary arteries: Unremarkable. No pulmonary embolism. Aorta: No acute findings. No thoracic aortic aneurysm. Lungs: Unremarkable. No mass. No consolidation. Pleural space: Unremarkable. No significant effusion. No pneumothorax. Heart: Unremarkable. No cardiomegaly. No significant pericardial effusion. No evidence of RV dysfunction. Bones/joints: No acute fracture. No dislocation. Soft tissues: Unremarkable. Lymph nodes: Unremarkable. No enlarged lymph nodes. IMPRESSION: Normal chest CTA. No pulmonary embolism. Electronically signed by: Ken Subramanian MD 07/21/22 21:44 PM Abnormal lab results 07/24/22 07/24/22 07/24/22 Range/Units 07:14 07:14 07:14 RBC 4.63 L (4.70-6.10) M/uL Hgb 13.4 L (14.0-18.0) g/dl Hct 39.4 L (42.0-52.0) % ESR 35 H (0-15) mm/hr C-Reactive Protein 5.30 H (0-0.5) mg/dl 07/21/22 17:48 CT Abd and Pelvis [CT abd pelvis IV con only] Stat 07/21/22 19:08 CT femur RT w con Stat 07/21/22 19:47 CT angio chest PE protocol Stat Hospital Course (1) SIRS (systemic inflammatory response syndrome): (2) Right groin pain: (3) Asthma: (4) Pain in right alvarez: Plan Patient is a 32-year-old male with no significant past medical history who presents to the hospital for evaluation for general unwellness and groin pain. Patient went to urgent care today with diagnosis of hernia, however, hernia not mentioned on CT of the abdomen/pelvis. Patient having SIRS criteria without source identified at this time. Patient was admitted for empiric antibiotic treatment and further work-up. SIRS-resolved -Patient admitted initially with tachycardia, tachypnea, elevated white count, and fever. -Initially had a leukocytosis of 14 on admission, resolved. -Patient is now afebrile with normal heart rate and no leukocytosis. -COVID, flu, Lyme, and anaplasmosis negative. -Started prophylactic treatment with Rocephin on 07/22. Blood cultures are taken prior to Rocephin administration which are negative x 48-hour -Urinalysis negative -PSA negative making prostatitis unlikely -Chest x-ray negative reducing likelihood of pneumonia -CT's negative for abscess or infectious process at this time -Babesia, Ehrlichia, and Rickettsia pending at time of discharge. -Elevated CRP and ESR at time of admission, down trended at time of discharge. -Pro-William negative, BioFire negative, peripheral smear negative. -Tylenol as needed for fever/pain - RPR, HIV, chlamydia and gonorrhea, and THO pending at time of discharge. -Unsure exact etiology of SIRS, may be viral in the self-limiting. Though if patient's symptoms persist further work-up may be indicated specifically autoimmune related. Should follow-up with PCP regarding if further work-up is indicated or not. -Due to patient being clinically stable and inflammatory markers downtrending, plan to discharge on antibiotics and to follow-up with PCP. Should repeat Lyme testing in 4 to 6 weeks, may be sooner if symptoms persist. -Initial plan to discharge on Augmentin, though patient has a allergic reaction to penicillin which results in anaphylaxis. Discharged on doxycycline 100 mg twice daily for 10 days. Pain in right alvarez -Erythematous patch during admission despite antibiotic treatment on the right alvarez without any injury to the area. -States it feels similar to right groin pain. Right groin painresolved - Allegedly diagnosed with hernia on ultrasound today at urgent care -CT of abdomen pelvis not demonstrating hernia -Lactate negative reducing likelihood of strangulated bowel -Pain subsided. Asthma, chronic - Continue Breo Ellipta Total Time Total Time Spent Total Time Spent (In Minutes): Please refer to attendings attestation. Discharge Plan Discharge Items Patient Disposition: Home - Self-Care Reason For Visit: GENERAL UNWELLNESS Discharge Diagnosis: SIRS without known etiology Activity: Resume your previous activity Non-emergency contact: Primary Care Provider Call non-emergency contact if: you have any medication questions, your pain is unusual for you, your temperature is above 101.5, your wound has increased redness, your wound has increased drainage and your wound pain has increased Follow-up/Referrals: PCP,NO [Primary Care Provider] - (PATIENT IS ESTABLISHED WITH [facility] [place]; HE WANTS TO ESTABLISH HIS OWN HOSPITAL FOLLOW UP WITH PCP.) Diet: Regular Addtl Attending Provider Instructions: You were admitted to the hospital for SIRS without known cause. You were treated with antibiotics and improved. You should follow up with your PCP about continuing workup. A discharge summary will be sent to your primary care physician to ensure continuity of care. Please bring this discharge summary with you to your next office appointment so that your provider can review it at that time. Follow-up appointments: * You have a scheduled appointment on 08/06 at the [facility] in [place]. Please call their office to confirm this appointment and to see if you are able to get in anytime sooner. He still have pending test at time of discharge that he should discuss at this appointment. * Keep all your follow-up appointments as already scheduled. If you cannot make an appointment, notify your provider. Medications: Your medication list has been reviewed and reconciled upon discharge to ensure accuracy and continuity of care. An updated list of all your medications is included with your hospital discharge paperwork. Please review this list closely, and make note of any changes. * We sent a new medication called Doxycycline to your pharmacy. Take Doxycycline 100mg twice a day for 10 days. * If you have any issues filling these prescriptions, please call [phone] and ask to leave a message for Dr. Mireles. * Take your medications as instructed; do not skip a dose of your medicines. Make sure all of your doctors know every medicine you are taking (including sdmw-zio-owmuswn medicines, vitamins, and supplements). Call your primary care provider before taking any new medicines (including over- the-counter m edicines, vitamins, and supplements), because some of these may interact with your current medications, or may make your symptoms worse. Tell your primary care provider if you cannot afford your medications. CONTACT YOUR PRIMARY CARE PROVIDER if you experience any of the following: * Worsening of symptoms * Fever, chills, or fatigue * Difficulty following your treatment plan, or difficulty taking medications CALL 911 OR GO TO THE EMERGENCY DEPARTMENT if you experience any of the following: * Sudden, severe abdominal pain or nausea/vomiting * Severe chest pain, or chest pain that radiates (moves) to your jaw or arm * Sudden, severe shortness of breath or difficulty breathing Thank you for allowing us to participate in your care. Pending Studies at Discharge: Yes Studies:: THO, HIV, gonorrhea and chlamydia Stand-Alone Forms: My [facility], Smoking Cessation Medications and DC Order Prescriptions: New doxycycline hyclate 100 mg capsule 100 mg PO BID 10 Days Qty: 20 0RF Continued azelastine-fluticasone 137-50 mcg/spray spray,non-aerosol 1 spray INTRANASAL BID fluticasone furoate-vilanterol [Breo Ellipta] 200-25 mcg/dose blister with device 1 ea INHALATION DAILY Discharge Orders: Discharge Order (Routine); Ordered 07/24/22 Ordered By: Bran Mireles Admission Data Admit Date/Time: 07/22/22 01:01 Attending Provider: Asif Crain Admit Provider: Sloan Pereira Primary Care Provider: PCP,NO Other Providers: Jeni Baires Other Interventions: Discharge Summary Assessment (RN) Last Done: 07/24/22 09:32 Supervising Physician Co-Signing Physician Notes Attending attestation Pt seen and examined in concert with Dr. Mireles. In agreement with the documented findings as noted in the resident documentation with any exceptions or additions as noted here. No acute complaints nor recurrent fever. On examination, S1/S2 nl RRR no MCG. CTAB. Abd NT/ND BS+ve SIRS without apparent source - negative w/u including BCx, Biofire. Improved CRP, stably elevated ESR. No WBC. Transition to course of doxycycline to cover undetected Lyme, repeat Lyme in 4 wks for titers. Consider w/u for rheumatologic causes based on testing and strong precautions for return and further evaluation. Else see resident documentation as noted. Total attending physician time spent on this patient's care on the day of discharge: 40 minutes. Resident Activity Tracking Resident Involvement: Resident Care Provided Care Provided: Adult Hospital Medicine
[2022-07-24 07:42] LABS: Basophils # (auto) 0.03 K/uL (0-0.2); Basophils % (auto) 0.6 %; Eosinophils # (auto) 0.14 K/uL (0-0.50); Eosinophils % (auto) 2.6 %; Hematocrit (blood only) 39.4 % (42.0-52.0); Hemoglobin 13.4 g/dl (14.0-18.0); Immature Granulocytes # (auto) 0.03 K/uL (0.01-0.20); Immature Granulocytes % (auto) 0.6 %; Lymphocytes # (auto) 1.32 K/uL (1.2-3.4); Lymphocytes % (auto) 24.3 %; Mean Corpuscular Hemoglobin 28.9 pg (25.0-34.0); Mean Corpuscular Volume 85.1 fL (80.0-100.0); Mean Platelet Volume 9.8 fL (9.4-12.4); Monocytes # (auto) 0.56 K/uL (0.11-0.59); Monocytes % (auto) 10.3 %; Neutrophils # (auto) 3.36 K/uL (1.40-6.50); Neutrophils % (auto) 61.6 %; Platelet Count 183 K/uL (130-400); RDW Coefficient of Variation 12.5 % (11.5-14.5); RDW Standard Deviation 37.7 fL (36.4-46.3); Red Blood Count 4.63 M/uL (4.70-6.10); White Blood Count 5.44 K/ul (4.8-10.8)
[2022-07-24] MEDS: FLUTICASONE PROPIONATE NA SPR 16 GM BTL SCH (07:50)
[2022-07-24] MEDS: FLUTICASONE/VILANTEROL 200/25MCG 14 PUFFS/INHALER INH SCH (07:50)
[2022-07-24 08:03] LABS: BUN Creatinine Ratio 12.1 (10-20); C Reactive Protein 5.3 mg/dl (0-0.5); Calcium 9.2 mg/dl (8.6-10.3); Creatinine Clr Calc Pharmacy 191.5 ml/min; Est GFR (African American) 129.7 ml/min; Est GFR (Non-African American) 111.9 ml/min; Potassium 3.7 mmol/L (3.5-5.1)
[2022-07-26 15:11] LABS: Anti Nuclear Antibody Screen POSITIVE (NEGATIVE)
[2022-07-26 16:11] LABS: Babesia microti DNA Not Detected (Not Detected)
[2022-07-27 15:22] LABS: ANA Pattern Nuclear, Speckled; ANA Titer 1:40 titer
== END 2022-07-24 10:59 | disposition home or self-care (01) | DRG 872 ==
LOC: ED 17:20 → SUATTDRO 07-22 01:01 → 3W 07-22 01:01